=== PATIENT | male | born 1990 | race Caucasian/White ===

== ENCOUNTER 2016-05-23 09:14 | Emergency (ER) | payer OTHER ==
[2016-05-23 09:20] VITALS: BP 120/76; PULSE 60; TEMP 98.6; BMI 23.7
--- NOTE | 2016-05-23 09:21 | PDOC ---
History of Present Illness - General Chief Complaint: Wound Stated Complaint: SWOLLEN LIP Time Seen by Provider: 05/23/16 09:17 History Source: Patient (Patient walked in complaining of few days of low grade fever, then a painful "pimple" at the right side of the lower lip at the ros level) Exam Limitations: No Limitations - History of Present Illness Timing/Duration: unsure, 24 hours, getting worse Severity: moderate Modifying Factors: improves with: cold therapy Associated Symptoms: reports: fever/chills Aspirin Received prior to arrival: Yes: no aspirin today Past History - Travel Traveled outside of the country in the last 30 days: No Close contact w/someone who was outside of country & ill: No - Past Medical History Allergies/Adverse Reactions: Allergies Allergy/AdvReac Type Severity Reaction Status Date / Time No Known Allergies Allergy Verified 05/23/16 09:15 Home Medications: Ambulatory Orders Bacitracin - [Bacitracin Topical Ointment -] 1 applic TP BID #1 applic 05/23/16 Valacyclovir HCl [Valtrex] 2,000 mg PO BID #4 tablet 05/23/16 Other medical history: DENIES - Psycho/Social/Smoking Cessation Hx Anxiety: No Suicidal Ideation: No Smoking History: Unknown if ever smoked Hx Alcohol Use: Yes Drug/Substance Use Hx: Yes Substance Use Type: Alcohol, Marijuana Review of Systems - Review of Systems Able to Perform ROS?: Yes Is the patient limited Kazakh proficient: Yes Constitutional: Yes: Symptoms Reported, Fever, Malaise HEENTM: Yes: Symptoms Reported, See HPI Respiratory: No: Symptoms reported, See HPI, Cough, Orthopnea, Shortness of Breath, SOB with Exertion, SOB at Rest, Stridor, Wheezing, Productive cough, Hemoptysis, Other Cardiac (ROS): No: Symptoms Reported, See HPI, Chest Pain, Edema, Irregular Heart Rate, Lightheadedness, Palpitations, Syncope, Chest Tightness, Other ABD/GI: No: Symptoms Reported, See HPI, Abdominal Distended, Abd. Pain w/ defecation, Blood Streaked Bowels, Constipated, Diarrhea, Difficulty Swallowing , Nausea, Poor Appetite, Poor Fluid Intake, Rectal Bleeding, Vomiting, Indigestion, Abdominal cramping, Tarry Stools, Other Integumentary: Yes: Symptoms Reported, See HPI All Other Systems: Reviewed and Negative *Physical Exam - Vital Signs Last Vital Signs Temp Pulse Resp BP Pulse Ox 98.6 F 60 16 120/76 100 05/23/16 09:14 05/23/16 09:14 05/23/16 09:14 05/23/16 09:14 05/23/16 09:14 - Physical Exam General Appearance: Yes: Nourished, Appropriately Dressed, Mild Distress HEENT: positive: CODY Neck: positive: Supple Respiratory/Chest: positive: Lungs Clear, Normal Breath Sounds Cardiovascular: positive: Regular Rate, S1, S2 Lymphatic: positive: Adenopathy (Few latero cervical and sub mandibular lymph nodes) Extremity: positive: Normal Capillary Refill Integumentary: positive: Normal Color, Swelling (Swelling and redness surrounding a few vesicular small lesions) Neurologic: positive: supervising producer II-XII NML intact, Fully Oriented, Alert, Normal Mood/ Affect Medical Decision Making - Medical Decision Making 05/23/16 17:12 *DC/Admit/Observation/Transfer Diagnosis at time of Disposition: Herpes labialis without complication - Discharge Dispostion Disposition: HOME Condition at time of disposition: Stable Admit: No - Prescriptions Prescriptions: Bacitracin - [Bacitracin Topical Ointment -] 1 applic TP BID #1 applic Valacyclovir HCl [Valtrex] 2,000 mg PO BID #4 tablet - Patient Instructions Printed Discharge Instructions: DI for Cold Sores Additional Instructions: AAvoid touching it, avoid contagion - Post Discharge Activity Work/School Note: Back to Work
[2016-05-23] MEDS ORDERED: valACYclovir HCL 500 MG TABLET (FP) ONE ×2 (09:30→09:37)
[2016-05-23] MEDS ORDERED: valACYclovir HCL 1000 MG TABLET PO ONE (09:33)
== END 2016-05-23 09:45 | disposition home or self-care (01) ==
LOC: FER 09:14
DX: B00.1 Herpesviral vesicular dermatitis (principal)
CPT/HCPCS: 99281-25

== ENCOUNTER 2018-01-14 19:05 | Emergency (ER) | payer OTHER ==
[2018-01-14 19:21] VITALS: BP 131/54; PULSE 60; TEMP 98.4; BMI 27.0
[2018-01-14] MEDS ORDERED: KETOROLAC TROMETHAMINE 30 MG/1 ML VIAL IM ONE (19:45)
[2018-01-14] MEDS ORDERED: KETOROLAC TROMETHAMINE 30 MG/1 ML VIAL ONE (19:47)
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
== END 2018-01-14 21:06 | disposition home or self-care (01) ==
LOC: FER 19:05
PROC: 3E0233Z Introduction of Anti-inflammatory into Muscle, Percutaneous Approach (ICD-10-PCS; principal; 2018-01-14)
DX: M25.531 Pain in right wrist (principal); M25.521 Pain in right elbow; J45.909 Unspecified asthma, uncomplicated; V43.52XA Car driver injured in collision with other type car in traffic accident, initial encounter; Y93.89 Activity, other specified; Y92.410 Unspecified street and highway as the place of occurrence of the external cause
CPT/HCPCS: 73070-TC-RT-FY; 73110-TC-RT-FY; 99282-25

== ENCOUNTER 2023-10-11 10:38 | Emergency (ER) | payer OTHER ==
[2023-10-11 10:43] VITALS: BP 128/96; PULSE 65; RESP 18; TEMP 99.9; BMI 26.5
[2023-10-11] MEDS ORDERED: NAPROXEN 500 MG TABLET ONE (11:20)
[2023-10-11] MEDS: NAPROXEN 500 MG TABLET PO ONE (11:21)
== END 2023-10-11 12:16 | disposition home or self-care (01) ==
LOC: FER 10:38
DX: M25.562 Pain in left knee (principal); M25.462 Effusion, left knee; X50.1XXA Overexertion from prolonged static or awkward postures, initial encounter; Y93.67 Activity, basketball
CPT/HCPCS: 73562-TC-LT-FY; 99283-25